=== PATIENT | male | born 1980 | race Caucasian/White ===

== ENCOUNTER 2017-04-27 11:54 | Emergency (ER) | payer OTHER ==
[2017-04-27] MEDS ORDERED: Tetracaine 0.5% 2 ML Bottle ONE (13:40)
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
== END 2017-04-27 12:44 | disposition home or self-care (01) ==
LOC: LB.ED 11:54
DX: T15.12XA Foreign body in conjunctival sac, left eye, initial encounter (principal); H10.9 Unspecified conjunctivitis
CPT/HCPCS: 65205; 99282-25